=== PATIENT | male | born 1975 | race Two or more races ===

== ENCOUNTER 2024-06-01 23:13 | Emergency (ER) | payer MEDICAID, SELFPAY ==
[2024-06-01 23:13] VITALS: BMI 27.3
[2024-06-01 23:25] VITALS: BP 126/86; PULSE 72; RESP 16; TEMP 37.1; O2SAT 96
--- NOTE | 2024-06-01 23:26 | XR_ITS ---
Examination: Lumbar spine 3 views Technique: AP lateral coned lateral lower lumbar spine 3 views Exam date and time: June 01, 2024 1150 hrs. Indications: Low back pain beginning one week ago Findings: Satisfactory alignment lumbar vertebral bodies Diffuse [id number] lumbar disc narrowing No spondylolisthesis Moderate lumbar spondylosis Impression: Diffuse [id number] lumbar degenerative disc disease
--- NOTE | 2024-06-01 23:27 | EDNOTE_ITS ---
ED Back Injury Pain RME/HPI General Chief Complaint: Back Pain/Injury Stated Complaint: LOWER BACK PAIN Time Seen by Provider: 06/01/24 23:16 Arrival date/time: 06/01/24 23:13 49-year-old male reports with complaints of lower back pain x 1 week. Patient denies trauma or injury and reports for work he does not do any heavy lifting pushing or pulling but he does do repetitive motions including bending regularly. Patient states that he has not taken any medicines for pain and it seems to have worsened. Patient denies any radiating pain, numbness, tingling, decreased range of motion or weakness in the lower extremities, changes in bowel or bladder habits, or abdominal pain. Limitations: no limitations Related Data Previous Rx's ?Medication ?Instructions ?Recorded cyclobenzaprine 5 mg tablet 5 mg PO TID PRN muscle spasm #30 12/17/22 tabs naproxen 500 mg tablet 500 mg PO BID PRN pain #30 tabs 12/17/22 meloxicam 7.5 mg tablet 7.5 mg PO BID PRN pain #30 tabs 06/02/24 methocarbamol 750 mg tablet 750 mg PO TID PRN pain #30 tabs 06/02/24 Allergies Allergy/AdvReac Type Severity Reaction Status Date / Time No Known Allergies Allergy Verified 06/01/24 23:14 Review of Systems Constitutional Constitutional: Denies chills and Denies fever(s) Gastrointestinal Gastrointestinal: Denies abdominal pain and Denies change in bowel habits Genitourinary Genitourinary: Denies dysuria, Denies flank pain and Denies hematuria Musculoskeletal Musculoskeletal: Reports back pain, Denies deformity, Denies myalgias, Denies numbness and Denies tingling Integumentary/Breasts Skin/Breast: Denies rash and Denies skin pain Neurologic Neurologic: Denies numbness and Denies tingling Hematologic/Lymphatic Hematologic/Lymphatic: Denies easy bleeding and Denies easy bruising Past Medical History Social History SMOKING STATUS: Current every day smoker ED Exam General Limitations: Present no limitations General appearance: Present alert and in no apparent distress Abdominal Exam Abdominal exam: Present soft and normal bowel sounds Extremities Exam Extremities exam: Present normal inspection and full ROM Back Exam Back exam: Present normal inspection and full ROM; Absent tenderness, CVA tenderness (R), CVA tenderness (L), muscle spasm, rashes, straight leg raise (R) or straight leg raise (L) Neurological Exam Neurological exam: Present alert, oriented X3 and CN II-XII intact Psychiatric Psychiatric exam: Present normal affect and normal mood Skin Skin exam: Present warm, dry, intact and normal color Course Course Course Narrative: X-rays negative for fractures or derangements however degenerative disc disease of the lumbar spine is noted Quality Measures none Orders Category Date Time Status XR lumbar spine 2-3V Stat Exams 06/01/24 23:26 Completed Vital Signs Vital signs: Vital Signs Temperature 98.7 F 06/01/24 23:25 Pulse Rate 72 06/01/24 23:25 Respiratory Rate 16 06/01/24 23:25 Blood Pressure 126/86 H 06/01/24 23:25 Pulse Oximetry (%) 96 06/01/24 23:25 Oxygen Delivery Method Room Air 06/01/24 23:25 Back Pain / Injury Patient data External records reviewed:: None Clinical information provided by:: patient Social determinants that could affect healthcare access:: none Patient has the following chronic illnesses:: none How is presenting disease/condition affected by chronic disease/condition?: no chronic disease Evaluation data The following diagnostics were reviewed and interpreted by me:: radiology exam(s) Lab and/or radiology exams considered but not ordered:: none Interpretation Summary: DDD lumbar spine Medications / Prescriptions Medications or Prescriptions considered but not ordered:: none Medication administrations:: Toradol 30 mg IM Consultations Consultation(s) initiated? (list below): No Diagnosis Most likely diagnosis given after review of the tests above:: DDD lumbar spine Admission Indicated Admission indicated?: not indicated Admission Request Was there a request for admission?: No Disposition Plan Disposition Plan: Discharge Discharge Attestation Discharge Attestation: The patient and all family members were given an opportunity to ask questions and understood the discharge instructions. Discharge instructions specifically effects, indications for sooner follow up or return to the emergency department, and the expected course of current diagnosis. Patient condition: Stable Discharge Plan Plan Patient Disposition: HOME (Self Care) Prescriptions/Referrals Prescriptions/Med Rec: New meloxicam 7.5 mg tablet 7.5 mg PO BID PRN (Reason: pain) Qty: 30 0RF methocarbamol 750 mg tablet 750 mg PO TID PRN (Reason: pain) Qty: 30 0RF No Action naproxen 500 mg tablet 500 mg PO BID PRN (Reason: pain) Qty: 30 0RF cyclobenzaprine 5 mg tablet 5 mg PO TID PRN (Reason: muscle spasm) Qty: 30 0RF Problem List Clinical Impression: Degenerative disc disease, lumbar Patient/Caregiver Discharge Instructions Discharge Activity: activity as tolerated Education Materials: How Your Back Works, ED Degenerative Disk Disease Additional Instructions: Take medication as directed follow-up with your primary care provider as needed Print Language: Telugu Stand Alone Forms: Yoly Award Info., Patient Portal Info Letter
[2024-06-02] MEDS: KETOROLAC INJ 60 MG/2 ML VIAL 30 MG IM (00:25)
== END 2024-06-02 00:28 | disposition home or self-care (01) ==
LOC: SERX 06-02 00:47
PROVIDERS: Emergency Provider Emergency Medicine
DX: M51.360 Other intervertebral disc degeneration, lumbar region with discogenic back pain only (principal)
CPT/HCPCS: 72100; 96372; 99283; J1885